=== PATIENT | male | born 1985 | race American Indian/Alaskan Native ===

== ENCOUNTER 2018-02-16 08:08 | Observation (INO) | payer OTHER, MEDICAID ==
[2018-02-07 08:59] VITALS: BMI 42.9
[2018-02-16] MEDS ORDERED: Lactated Ringer's 1,000 ML IV ONE ×3 (09:35→12:43)
[2018-02-16 09:37] LABS: HEMOGLOBIN 13.9 g/dL (12.0-18.0); MEAN CELL VOLUME 85.1 fl (80.0-94.0); MEAN CORPUSCULAR HEMOGLOBIN 27.6 pg (27.0-31.0); MEAN CORPUSCULAR HGB CONC 32.4 g/dL (33.0-37.0); RBC 5.05 Mil/uL (4.40-5.90); RED CELL DISTRIBUTION WIDTH 13.9 % (11.5-14.5); WHITE BLOOD COUNT 6.5 K/uL (4.8-10.8)
--- NOTE | 2018-02-16 09:52 | CARD ---
APPROVED REPORT EKG Measurement Heart [id number] <Conclusion> Normal sinus rhythm
[2018-02-16] MEDS ORDERED: Remifentanil 2 MG PDS IV ONE ×2 (11:50→13:10)
[2018-02-16] MEDS ORDERED: Vancomycin 1 g Inj IVPB ONE (12:27)
[2018-02-16] MEDS ORDERED: Propofol 10 mg/ml Inj (20 ML) ONE ×2 (12:56→13:25)
[2018-02-16] MEDS ORDERED: MethylPREDNISolone Depo 40 mg/ml Inj IM ONE (14:00)
[2018-02-16] MEDS ORDERED: Bupivacaine 0.5% Inj(30mL) IJ ONE (14:00)
[2018-02-16] MEDS ORDERED: Succinylcholine 200 mg/10 ml Inj IV ONE (14:15)
[2018-02-16] MEDS ORDERED: ceFAZolin 1 GM in Sodium Chloride 0.9% 100 ML IVPB SCH (14:45)
[2018-02-16] MEDS ORDERED: Sodium Chloride 0.9% 1,000 ML IV SCH (14:45)
[2018-02-16] MEDS: HYDROmorphone 0.5 mg/0.5 ml ISec IVP PRN ×3 (15:10→19:07)
--- NOTE | 2018-02-16 15:43 | RAD ---
PROCEDURE: Intraoperative Fluoroscopy. HISTORY: C3-4 C-4-5 FINDINGS: Fluoroscopic assistance was provided 5.9 seconds fluoroscopy time utilized during this procedure. Radiation dose = 0.56 mGy. Please refer to the operative report for additional details.
[2018-02-16] MEDS ORDERED: ceFAZolin IV 1 gm in Dextrose 1 GM/50 ML BAG IVPB SCH (17:30)
[2018-02-16] MEDS ORDERED: ceFAZolin IV 1 gm in Dextrose 1 GM/50 ML BAG IVPB ONE (21:00)
[2018-02-16] MEDS: Lactated Ringer's 1,000 ML IV SCH (21:07)
[2018-02-17] MEDS: Lactated Ringer's 1,000 ML IV SCH (00:03)
[2018-02-17] MEDS: HYDROmorphone 0.5 mg/0.5 ml ISec IVP PRN ×3 (00:04→08:17)
[2018-02-17 04:34] VITALS: PULSE 71; RESP 20
[2018-02-17 08:14] VITALS: BP 118/85; TEMP 97.5; O2SAT 94
== END 2018-02-17 10:58 | disposition home or self-care (01) ==
LOC: H.OPSURG 08:08 → H.MEDSURG1 17:35 → H.OPSURG 02-17 10:13 → UNDOADMOB 02-17 10:18 → H.MEDSURG1 02-17 10:18 → UNDODISOB 02-17 10:58
PROVIDERS: ADMIT Orthopaedic Surgery Orthopaedic Surgery of the Spine; ATTEND Orthopaedic Surgery Orthopaedic Surgery of the Spine
DX: M50.121 Cervical disc disorder at C4-C5 level with radiculopathy (principal); M50.21 Other cervical disc displacement, high cervical region; M48.02 Spinal stenosis, cervical region
CPT/HCPCS: 20931; 22551; 22552; 22853; 36415; 76001; 85027; 86850; 86900; 88304; 93005; C1713; G0378; J0330; J0690; J1030; J1170; J2250; J2405; J2704; J2765; J3010; J7030; J7120